=== PATIENT | female | born 1965 | race Caucasian/White ===

== ENCOUNTER → 2020-10-20 | Outpatient (CLI) | payer BC ==
[2020-10-21 10:13] LABS: HBSAG SCREEN Negative (Negative); HEP B CORE AB, TOT Negative (Negative)
[2020-10-21 11:13] LABS: HCV AB <0.1 (0.0-0.9); RHEUMATOID ARTHRITIS FACTOR <10.0 IU/mL (0.0-13.9)
[2020-10-21 14:13] LABS: ANGIOTENSIN-CONVERTING ENZYME <15 U/L (14-82)
[2020-10-22 00:08] LABS: CCP ANTIBODIES IGG/IGA 13 units (0-19)
== END ==
LOC: LAB 10:10
PROVIDERS: Internal Medicine
DX: D89.89 Other specified disorders involving the immune mechanism, not elsewhere classified (principal); M25.50 Pain in unspecified joint; R76.8 Other specified abnormal immunological findings in serum; M25.461 Effusion, right knee; M25.462 Effusion, left knee; R79.82 Elevated C-reactive protein (CRP); R70.0 Elevated erythrocyte sedimentation rate; Z79.899 Other long term (current) drug therapy
CPT/HCPCS: 82164; 82550; 83520; 85652; 86140; 86200; 86431; 86704; 86803; 87340